=== PATIENT | male | born 1955 | race Two or more races ===

== ENCOUNTER 2021-05-30 13:10 | Outpatient (CLI) | payer OTHER | END 2021-05-30 13:15 | disposition home or self-care (01) | LOC: RAD 13:10 | PROVIDERS: ATTEND Internal Medicine Cardiovascular Disease | DX: M12.9 Arthropathy, unspecified (principal) ==

== ENCOUNTER 2021-12-04 08:53 | Outpatient (CLI) | payer OTHER | END 2021-12-04 08:55 | disposition home or self-care (01) | LOC: SONOGRAMA 08:53 | PROVIDERS: ATTEND Internal Medicine Cardiovascular Disease | DX: R10.9 Unspecified abdominal pain (principal) ==

== ENCOUNTER 2023-12-18 08:10 | Emergency (ER) | payer OTHER ==
[~2023-12-18] VITALS: Ht 175.3 cm; Wt 113.4 kg
[2023-12-18] MEDS ORDERED: PANTOPRAZOLE SO40 MG PO (08:31)
[2023-12-18] MEDS ORDERED: LOSARTAN POTASS25 MG PO (08:31)
[2023-12-18] MEDS ORDERED: AMLODIPINE BESYL5 MG PO (08:31)
[2023-12-18] MEDS ORDERED: GABAPENTIN100 M2 PO (08:31)
[2023-12-18] MEDS ORDERED: METFORMIN HCL500 M4 PO (08:32)
[2023-12-18] MEDS ORDERED: FAMOTIDINE40 MG PO (08:32)
[2023-12-18] MEDS ORDERED: METOPROLOL SUC100 MG PO (08:32)
[2023-12-18] MEDS ORDERED: ROSUVASTATIN CAL5 MG PO (08:32)
[2023-12-18] MEDS ORDERED: ALBUTEROL SULFATE 3 ML/2.5 MG AMPUL.NEB IH STA (09:20)
[2023-12-18] MEDS ORDERED: BUDESONIDE 0.5 MG/2 ML AMPUL.NEB IH STA (09:21)
[2023-12-18 09:57] LABS: HEMATOCRIT 45.5 % (39.0-48.0); HEMOGLOBIN 15.8 g/dL (13-16.00); MEAN CELL VOLUME 90.8 fL (80.0-100.00); MEAN CORPUSCULAR HEMOGLOBIN 31.5 pg (27.00-32.0); MEAN CORPUSCULAR HGB CONC 34.7 g/dl (32.0-36.0); PLATELET COUNT 181 K/uL (150-450); RED BLOOD COUNT 5.01 M/uL (4.00-6.00); RED CELL DISTRIBUTION WIDTH 13.7 % (11.5-14.5)
[2023-12-18 10:00] LABS: URINE APPEARANCE Clear; URINE BILIRRUBIN Negative (NEGATIVE); URINE BLOOD Negative; URINE COLOR Dark Yellow; URINE GLUCOSE Negative (NEGATIVE); URINE KETONE Trace (NEGATIVE); URINE LEUKOCYTE Trace; URINE NITRATE Negative; URINE PROTEIN Trace (NEGATIVE)
[2023-12-18 10:07] LABS: URINE EPITHELIAL CELLS 7.4 uL (0.0-38.8); URINE RBC 3.8 uL (0.0-20.8); URINE WBC 5.2 uL (0.0-23.2)
[2023-12-18 10:10] LABS: URINE CAST 0.61 uL (0.0-1.40)
[2023-12-18 10:11] LABS: CALCIUM 8.9 mg/dL (8.5-10.1); CREATININE SERUM 1.16 mg/dL (0.70-1.30); GFR 62.61; POTASSIUM 3.92 mEq/L (3.5-5.1)
[2023-12-18] MEDS ORDERED: GUAIFENESIN/DEXTROMETHORPHAN 10ML BLIST.PACK PO ONE (11:15)
[2023-12-18] MEDS ORDERED: AZITHROMYCIN 500 MG TABLET PO ONE (11:15)
[2023-12-18] MEDS ORDERED: TUSNEL LIQUID178 ML PO (11:54)
[2023-12-18] MEDS ORDERED: PROAIR RESPICL90 MCG IH (11:54)
[2023-12-18] MEDS ORDERED: ZYRTEC10 MG PO (11:54)
[2023-12-18] MEDS ORDERED: ZITHROMAX500 MG PO (11:54)
== END 2023-12-18 12:05 | disposition home or self-care (01) ==
LOC: ER 08:12
PROVIDERS: Emergency Medicine
DX: J40 Bronchitis, not specified as acute or chronic (principal); Z20.822 Contact with and (suspected) exposure to COVID-19; I10 Essential (primary) hypertension; E11.9 Type 2 diabetes mellitus without complications; Z79.84 Long term (current) use of oral hypoglycemic drugs; Z88.0 Allergy status to penicillin; Z91.013 Allergy to seafood